=== PATIENT | male | born 1990 | race Caucasian/White ===

== ENCOUNTER 2020-01-30 15:59 | Emergency (ER) | payer OTHER ==
[~2020-01-30] VITALS: Ht 175.3 cm; Wt 72.6 kg
[2020-01-30] MEDS ORDERED: MOBIC7.5 MG PO (16:49)
[2020-01-30 17:17] VITALS: BP 130/50
== END 2020-01-30 17:18 | disposition home or self-care (01) ==
LOC: ER 15:59
DX: S93.402A Sprain of unspecified ligament of left ankle, initial encounter (principal); M79.672 Pain in left foot; W17.2XXA Fall into hole, initial encounter; Y93.89 Activity, other specified; Y92.89 Other specified places as the place of occurrence of the external cause; Y99.8 Other external cause status